=== PATIENT | female | born 1980 | race Caucasian/White ===

== ENCOUNTER 2020-11-20 16:01 | Outpatient (CLI) | payer BC, SELFPAY ==
--- NOTE | ~2020-11-20 | MM_ITS ---
EXAMINATION: MM screening rishabh BI w mitchell HISTORY: Screening TECHNIQUE: Craniocaudal and mediolateral oblique 3-D tomosynthesis images were obtained and synthetic 2-D images were generated. CAD analysis was submitted and interpreted. COMPARISON: 07/17/2018 BREAST PARENCHYMAL COMPOSITION: There are scattered areas of fibroglandular density. FINDINGS: There is no evidence of suspicious mass, calcification, or architectural distortion to sugg est malignancy in either breast. There has been no suspicious interval change. IMPRESSION: 1. No mammographic evidence of malignancy. 2. Recommend routine screening mammography in one year. BI-RADS Category 1: Negative Reviewed, dictated and finalized at location A. UNTING FILE CLERK
== END 2020-11-20 16:02 | disposition home or self-care (01) ==
PROVIDERS: PCP Internal Medicine; Visit Provider Obstetrics & Gynecology
DX: Z12.31 Encounter for screening mammogram for malignant neoplasm of breast (principal)
CPT/HCPCS: 77063; 77067

== ENCOUNTER → 2020-11-26 15:44 | Outpatient (CLI) | payer BC, SELFPAY ==
--- NOTE | ~2020-11-26 | US_ITS ---
EXAMINATION: US pelvic complete w TV DATE: 11/26/2020 16:09 INDICATION: Irregular menstruation Comparison:CT dated 02/10/2018 TECHNIQUE: Multiple transabdominal and endovaginal sonographic images of the pelvis performed. FINDINGS: The uterus measures 7.7 x 3.6 x 4.4 cm. There is a slightly hyperechoic mass posterior aspe ct of the uterus measuring 1.3 cm, compatible with a fibroid. The endometrial complex measures 12 mm. The right ovary measures 3.2 x 2.4 x 2.9 cm and the left ovary measures 3.8 x 2.2 x 3.3 cm. There is a complicated left ovarian cyst measuring 2.4 cm greatest dimension. There is a hypoechoic mass of th e right ovary measuring up to 2.2 cm, likely complicated proteinaceous or hemorrhagic cyst. There is no free fluid in the pelvis. There are no abnormal masses seen on either side. IMPRESSION: 1. Complicated hypoechoic masses in both ovaries, likely complicated cysts. Recommend follow-up ultra sound in 4-6 weeks to assess for resolution. 2: Mild endometrial thickening measuring 1.2 cm. 3: Small hyperechoic mass of the myometrium posteriorly measuring 1.3 cm, consistent with a fibroid. Reviewed, dictated and finalized at location A. ACT ASSEMBLER IMPRESSION: 1. Complicated hypoechoic masses in both ovaries, likely complicated cysts. Rec ommend follow-up ultrasound in 4-6 weeks to assess for resolution. 2: Mild endometrial thickening measuring 1.2 cm. 3: Small hyperechoic mass of the myometrium posteriorly measuring 1.3 cm, consi stent with a fibroid.
== END ==
PROVIDERS: Visit Provider Obstetrics & Gynecology
DX: N92.6 Irregular menstruation, unspecified (principal)
CPT/HCPCS: 76830; 76856

== ENCOUNTER → 2021-01-09 09:46 | Outpatient (CLI) | payer BC, SELFPAY ==
--- NOTE | ~2021-01-09 | US_ITS ---
EXAMINATION: US pelvic complete w TV EXAM DATE: 01/09/2021 10:15 INDICATION: N92.6 - Irregular menstruation, unspecified. TECHNIQUE: Pelvic transabdominal and transvaginal sonogram was performed. There are multiple graysca le and Doppler images available for interpretation. Comparison is made to prior examination from 2020. FINDINGS: Uterus measures 8.7 x 3.9 x 5.4 cm, with 2 focal regions which could be small fibroids steven suring up to 1.6 cm. Endometrial stripe measures 4 mm, within normal limits. There are small nabothi an cysts. There is no free pelvic fluid. Right adnexa: The ovary measures 3.8 x 2.7 x 3.6 cm and is morphologically normal, contains the domin ant physiologic follicle. Ovarian vascular flow confirmed. Left adnexa: The ovary measures 2.6 x 1.6 x 2.7 cm and is morphologically normal, resolution of previ ously seen cystic lesion was probably dominant follicle last month. Ovarian vascular flow confirmed. IMPRESSION: 1. Probable small fibroids. Reviewed, dictated and finalized at location A. IMPRESSION: 1. Probable small fibroids.
== END ==
PROVIDERS: Visit Provider Obstetrics & Gynecology
DX: N92.6 Irregular menstruation, unspecified (principal)
CPT/HCPCS: 76830; 76856

== ENCOUNTER 2021-07-28 18:39 | Emergency (ER) | payer BC, SELFPAY ==
--- NOTE | ~2021-07-28 | XR_ITS ---
EXAMINATION: XR chest 2V EXAM DATE: 07/28/2021 18:59 INDICATION: Right-sided chest pain, jaw pain. Hiatal hernia, reflux. TECHNIQUE: Frontal and lateral projections of the chest obtained and reviewed. Comparison is made to prior examination from 07/10/2016. FINDINGS: Right basilar granuloma. The lungs are otherwise clear. There are no pleural effusions. The cardiomediastinal silhouette is within normal limits. There is no pneumothorax suspected. The b ones and soft tissues are unremarkable. IMPRESSION: No acute cardiopulmonary findings. Reviewed, dictated and finalized at location A.
--- NOTE | 2021-07-28 18:44 | ECG_ITS ---
Measurements Intervals [place] Rate: 66 P: 19 [place]: 154 QRS: 18 QRSD: 93 T: 16 QT: 369 QTc: 388 Interpretive Statements SINUS RHYTHM WITH SINUS ARRHYTHMIA CONSIDER INFERIOR INFARCT, AGE INDETERMINATE ABNORMAL ECG Electronically Signed On 07-28-2021 19:15:36 CDT by Juan Vang D.O.
[2021-07-28 18:45] VITALS: BP 131/95; PULSE 86; RESP 18; TEMP 36.4; O2SAT 98
[2021-07-28 18:59] LABS: Basophils Percent Auto 0.3 % (0.2-1.2); Eosinophils Absolute Auto 0.2 K/mm3 (0-0.3); Eosinophils Percent Auto 1.6 % (0-4.4); Hematocrit 38.4 % (37.0-47.0); Hemoglobin 12.8 g/dL (12.0-15.0); Immature Granulocyte Absolute 0.02 K/mm3 (0.00-0.031); Immature Granulocyte Percent A 0.2 % (0-0.5); Lymphocytes Percent Auto 36.2 % (18.3-44.2); Mean Corpuscular HGB Conc 33.3 g/dl (32-36); Mean Corpuscular Hemoglobin 31.6 pg (26-34); Mean Corpuscular Volume 94.8 fl (80-100); Mean Platelet Volume 10.7 fl (7.4-10.4); Monocytes Absolute Auto 0.6 K/mm3 (0.1-0.6); Monocytes Percent Auto 6.8 % (2.6-8.5); Neutrophils Percent Auto 54.9 % (45.5-73.1); Platelet Count Result 264 k/mm3 (150-375); Red Blood Count 4.05 M/mm3 (4.2-5.4); Red Cell Distribution Width 12.1 % (11.5-14.5); White Blood Count 9.1 K/mm3 (4.5-10.0)
[2021-07-28 19:11] LABS: Anion Gap 12 mmol/L (8-16); Blood Urea Nitrogen 22 mg/dL (7-17); Calcium 9.7 mg/dL (8.4-10.2); Carbon Dioxide 23 mmol/L (22-30); Chloride 103 mmol/L (98-107); Estimated CRCL calculation 109 ml/min; Estimated Glomerular Filt Rate > 60; Glucose 98 mg/dL (65-110); Potassium 4.2 mmol/L (3.4-5.0); Prothrombin Time 12.8 Seconds (11.1-14.7); Sodium 138 mmol/L (137-145)
[2021-07-28 19:12] LABS: Partial Thromboplastin Time 32.1 SECONDS (22.3-36.8)
[2021-07-28 19:25] LABS: Troponin I < 0.012 ng/mL (0.000-0.034)
--- NOTE | 2021-07-28 21:14 | ED.CHESTPAIN ---
HPI - Chest Pain General Chief Complaint: Chest Pain Stated Complaint: chest, upper abd, neck pain Time Seen by Provider: 07/28/21 21:07 Source: patient Mode of arrival: ambulatory Limitations: no limitations History of Present Illness HPI narrative: The patient is a 41 yo female with a history of GERD, diverticulitis, hypothyroidism, who presents to the ER for evaluation of substernal chest pain. Pain began three hours ago, initially mild, but then worsened to 8/10. Patient with radiation of chest pain to chin and left neck. No nausea,vomiting. Pt did feel lightheaded with this episode. Patient did take omeprazole and Tums at home; also reports taking 4 ASA at home. Chest pain is not worsened with movement or exertion. She denies dyspnea. Pain currently is mild. Her grandfather had a heart attack at 38. She does not smoke cigarettes. No history of drug abuse. Not on control.No recent car or air travel.No leg swelling.No fever or chills.No rhinorrhea. She is vaccinated. Related Data Home Medications Medication Instructions Recorded Confirmed levothyroxine 112 mcg tablet 112 mcg PO DAILY 11/14/19 03/13/21 multivitamin,[id number] 1 tablet PO DAILY 07/22/20 03/13/21 ipratropium bromide 21 mcg (0.03 2 spray INTRANASAL BID 12/09/20 03/13/21 %) nasal spray spironolactone 100 mg tablet 100 mg PO DAILY 12/09/20 03/13/21 cholecalciferol (vitamin D3) 25 25 mcg PO DAILY 02/03/21 03/13/21 mcg (1,000 unit) capsule Allergies Allergy/AdvReac Type Severity Reaction Status Date / Time adhesive tape Allergy Mild Unknown Verified 02/03/21 14:27 gramicidin D Allergy Mild rash Verified 02/03/21 14:27 bacitracin Allergy Unknown Unknown Verified 02/03/21 14:27 latex Allergy Unknown Unknown Verified 02/03/21 14:27 polymyxin B Allergy Unknown Unknown Verified 02/03/21 14:27 darbepoetin mindy Allergy Rash Verified 02/03/21 14:27 [From Aranesp (in polysorbate)] methylchloroisothiazolinone Allergy Rash Verified 02/03/21 14:27 methylisothiazolinone Allergy Rash Verified 02/03/21 14:27 BACITRACIN ZINC Allergy Mild rash Uncoded 01/16/21 12:05 NEOMYCIN SULFATE Allergy Mild rash Uncoded 01/16/21 12:05 POLYMYXIN B SULFATE Allergy Mild rash Uncoded 01/16/21 12:05 Review of Systems Review of Systems: CONSTITUTIONAL: Denies fever, chills, or sweats. EYES: Denies visual changes, redness, or discharge. ENT: Denies rhinorrhea, congestion, sore throat, or otalgia. CARDIOVASCULAR: Chest pain without palpitations or edema RESPIRATORY: Denies cough or dyspnea. GASTROINTESTINAL: Denies abdominal pain, nausea, vomiting, or diarrhea. GENITOURINARY: Denies dysuria or hematuria. SKIN: Denies rash or itching. MUSCULOSKELETAL: Denies back pain, joint pain, or myalgia. NEUROLOGIC: Denies headache, numbness, or weakness. [facility] [place] Past Medical History Medical History Allergies Chicken pox Diverticulitis Gestational diabetes mellitus Hemorrhoids PCOS (polycystic ovarian syndrome) Thyroid disease Surgical History Surgical History Delivery by section History of back surgery L5, S1 fusion 2008 History of gastric surgery gastric sleeve Previous section Family History Family History Father Hypertension Family history of elevated blood lipids Family history of diabetes mellitus in first degree relative Mother Hypertension Family history of elevated blood lipids Family history of diabetes mellitus in first degree relative Family history of malignant neoplasm of breast in first degree relative Grandparent Cerebrovascular accident Carcinoma of colon Family history of malignant neoplasm of breast, Onset Age: 57 Family history of coronary artery disease Other Family history of arthritis Family history of cardiovascular disease Social Histor
[2021-07-28 21:46] LABS: Troponin I < 0.012 ng/mL (0.000-0.034)
[2021-07-28 21:50] VITALS: BP 128/84; PULSE 71; RESP 18; O2SAT 99
--- NOTE | 2021-07-28 22:23 | ECG_ITS ---
Measurements Intervals [place] Rate: 74 P: 23 [place]: 158 QRS: 27 QRSD: 94 T: 24 QT: 366 QTc: 407 Interpretive Statements SINUS RHYTHM MINIMAL Q WAVES- INFERIOR LEADS BASELINE WANDER- V4-V6 BORDERLINE ECG Electronically Signed On 07-29-2021 6:10:22 CDT by Juan Vang D.O.
[2021-07-28] MEDS: BELLADONNA ALK/PHENOB ELIX 10 ML, MAG HYDROX/ALUMINUM HYD/SIMETH 30 ML, LIDOCAINE HCL 2... PO (22:36)
[2021-07-28] MEDS: MECLIZINE HCL 25 MG TABLET PO (22:36)
== END 2021-07-28 22:43 | disposition home or self-care (01) ==
PROVIDERS: Family Medicine; Emergency Provider Emergency Medicine; PCP Internal Medicine
DX: R07.89 Other chest pain (principal); R42 Dizziness and giddiness; K21.9 Gastro-esophageal reflux disease without esophagitis; E03.9 Hypothyroidism, unspecified; E28.2 Polycystic ovarian syndrome; E07.9 Disorder of thyroid, unspecified; R94.31 Abnormal electrocardiogram [ECG] [EKG]
CPT/HCPCS: 36415; 71046; 80048; 84484; 85025; 85610; 85730; 93005; 99284; A9270

== ENCOUNTER → 2022-06-15 14:32 | Outpatient (CLI) | payer BC, SELFPAY ==
--- NOTE | ~2022-06-15 | MMUS_ITS ---
EXAMINATION: MM diagnostic rishabh BI w mitchell, US breast RT limited HISTORY: Right breast pain TECHNIQUE: Additional 3-D tomosynthesis images of the breasts were performed and synthetic 2-D images were generated. CAD analysis was submitted and interpreted. High resolution Limited right breast ult rasound was performed. COMPARISON: Comparison to multiple prior studies sequentially, with oldest reviewed study dated 12/17. BREAST PARENCHYMAL COMPOSITION: Breast composed of scattered areas of fibroglandular density FINDINGS: MAMMOGRAPHIC FINDINGS: The breasts are stable without evidence for malignancy. ULTRASOUND: Limited right breast ultrasound: Normal heterogeneous echotexture without focal solid or cystic mass. IMPRESSION: 1. No evidence for malignancy in either breast. 2. Routine yearly screening mammogram and regular clinical breast examination are recommended. BI-RADS Category 1: Negative Reviewed, dictated and finalized at location A. IMPRESSION: 1. No evidence for malignancy in either breast. 2. Routine yearly screening mammogram and regular clinical breast examination a re recommended. BI-RADS Category 1: Negative
== END ==
PROVIDERS: PCP Internal Medicine; Visit Provider Obstetrics & Gynecology
DX: N64.4 Mastodynia (principal)
CPT/HCPCS: 76642; 77062; 77066; G0279

== ENCOUNTER 2022-08-31 12:24 | Emergency (ER) | payer BC, SELFPAY ==
--- NOTE | ~2022-08-31 | XR_ITS ---
EXAMINATION: XR hip LT 2V w AP pelvis DATE: 08/31/2022 13:00 INDICATION: Left hip injury. Pulled/popped a muscle last night while stretching. TECHNIQUE: Anteroposterior view of the pelvis and anteroposterior and frog-leg lateral views of the l eft hip were obtained. COMPARISON: None. FINDINGS: Alignment is normal. No fracture. No suspected avascular necrosis. Mild osteoarthritis at the bilater al sacroiliac joints. Bilateral hip joint spaces are normal. Tiny calcification along the left labrum . Plate and screw fixation for anterior spinal fusion at L5-S1. Soft tissues are unremarkable. IMPRESSION: 1. No acute osseous abnormality. Reviewed, dictated and finalized at location A. R MIXER
[2022-08-31 12:33] VITALS: BP 119/87; PULSE 88; RESP 18; TEMP 36.7; O2SAT 100
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
[2022-08-31] MEDS: KETOROLAC (*BKC) 60 MG/2 ML VIAL IM (13:12)
== END 2022-08-31 13:37 | disposition home or self-care (01) ==
PROVIDERS: Emergency Provider Nurse Practitioner Family; PCP Internal Medicine
DX: M25.552 Pain in left hip (principal); E28.2 Polycystic ovarian syndrome; E07.9 Disorder of thyroid, unspecified; Z98.84 Bariatric surgery status
CPT/HCPCS: 73502; 96372; 99213; G0463; J1885

== ENCOUNTER → 2022-09-01 09:04 | Outpatient (CLI) | payer BC, SELFPAY ==
--- NOTE | ~2022-09-01 | XR_ITS ---
XR_CERV2-3V_CR DATE: 09/01/2022 10:32 INDICATION: Cervical radiculopathy TECHNIQUE: AP, open-mouth, lateral views COMPARISON: 09/23/2007 cervical spine FINDINGS: There is mild reversal of the cervical spine which may be due to muscle spasm. C1 and C2 are normally aligned and the odontoid process is intact. No fracture or dislocation or locked facet or prevertebral soft tissue swelling. Cervical interspaces are relatively well preserved. IMPRESSION: Mild reversal cervical curvature Reviewed, dictated and finalized at Location A. Reviewed, dictated and finalized at location A. TEST DESK WORKER
--- NOTE | ~2022-09-01 | XR_ITS ---
XR shoulder LT min 2V DATE: 09/01/2022 10:32 INDICATION: Left shoulder pain after injury TECHNIQUE: 3 views COMPARISON: None FINDINGS: No fracture or dislocation, periosteal reaction or bone destruction or abnormal soft tissue calcification of the left shoulder. Degenerative spurring of the thoracic spine. IMPRESSION: Negative left shoulder Reviewed, dictated and finalized at location A. EL POST WEIGHER IMPRESSION: Negative left shoulder
== END ==
PROVIDERS: PCP Nurse Practitioner; Visit Provider Nurse Practitioner
DX: M54.12 Radiculopathy, cervical region (principal); M25.512 Pain in left shoulder
CPT/HCPCS: 72040; 73030

== ENCOUNTER 2024-07-25 10:57 | Outpatient (CLI) | payer BC, SELFPAY ==
--- NOTE | ~2024-07-25 | XR_ITS ---
EXAM: XR shoulder LT min 2V DATE: 07/25/2024 11:08 HISTORY: no recent injury left shoulder pain with rom for 4 years . COMPARISON: 09/01/2022. FINDINGS: Normal mineralization. No fracture or dislocation. No lytic or blastic lesion. Mild degene rative change at the AC joint, including inferiorly directed osteophytosis. No erosion or periosteal change. Soft tissues within normal limits. IMPRESSION: Mild acromioclavicular joint osteoarthritis. Reviewed, dictated and finalized at location K.
== END 2024-07-25 10:58 | disposition home or self-care (01) ==
PROVIDERS: PCP Nurse Practitioner; Visit Provider Nurse Practitioner
DX: M19.012 Primary osteoarthritis, left shoulder (principal)
CPT/HCPCS: 73030